=== PATIENT | male | born 1990 | race Caucasian/White ===

== ENCOUNTER 2024-04-15 19:52 | Emergency (ER) | payer MEDICAID ==
[~2024-04-15] VITALS: Ht 157.5 cm; Wt 61.0 kg
[2024-04-15 21:26] VITALS: TEMP 98.6; O2SAT 99
[2024-04-16 00:55] VITALS: BP 122/85; PULSE 88; RESP 20
== END 2024-04-16 00:56 | disposition home or self-care (01) ==
LOC: ER 19:52
DX: S09.8XXA Other specified injuries of head, initial encounter (principal); Y08.89XA Assault by other specified means, initial encounter; Y93.89 Activity, other specified; Y92.89 Other specified places as the place of occurrence of the external cause; Y99.8 Other external cause status
CPT/HCPCS: 99284